=== PATIENT | male | born 1960 | race Two or more races ===

== ENCOUNTER 2018-03-10 21:18 | Emergency (ER) | payer MEDICAID ==
[~2018-03-10] VITALS: Ht 167.6 cm; Wt 72.6 kg
[2018-03-10 21:25] VITALS: BP 117/80
[2018-03-10] MEDS: Albuterol ud Inhalation HHN ONE ×2 (21:45→22:56)
[2018-03-10] MEDS ORDERED: Morphine Sulfate 2mg/ml Inj IVP ONE (22:45)
[2018-03-10 23:50] LABS: BASOPHILS % (AUTO) 1.4 % (0.0-2.0); EOSINOPHILS % (AUTO) 1.8 % (0.0-3.0); HEMATOCRIT 39.8 % (42.0-52.0); HEMOGLOBIN 13.5 G/DL (14.2-18.0); LYMPHOCYTES % (AUTO) 14.9 % (20.0-45.0); MEAN CORPUSCULAR VOLUME 93 FL (80-99); MONOCYTES % (AUTO) 10.6 % (1.0-10.0); NEUTROPHILS % (AUTO) 71.3 % (45.0-75.0); PLATELET COUNT 166 K/UL (150-450); RED BLOOD COUNT 4.27 M/UL (4.70-6.10); RED CELL DISTRIBUTION WIDTH 13.1 % (11.6-14.8); WHITE BLOOD COUNT 7.9 K/UL (4.8-10.8)
[2018-03-11] LABS: BLOOD UREA NITROGEN 43 mg/dL (7-18); CARBON DIOXIDE 26 MMOL/L (21-32); CHLORIDE 102 MMOL/L (98-107); CREATININE 1.3 MG/DL (0.55-1.30); POTASSIUM 3.8 MMOL/L (3.5-5.1); SODIUM 135 MMOL/L (136-145)
[2018-03-11 00:01] LABS: ALANINE AMINOTRANSFERASE 319 U/L (12-78); ALBUMIN 2.9 G/DL (3.4-5.0); ASPARTATE AMINO TRANSFERASE 288 U/L (15-37); BILIRUBIN,TOTAL 1.6 MG/DL (0.2-1.0); CALCIUM 8.4 MG/DL (8.5-10.1)
[2018-03-11 00:02] LABS: ALKALINE PHOSPHATASE 184 U/L (46-116); BILIRUBIN,DIRECT 0.8 MG/DL (0.0-0.3)
[2018-03-11] MEDS ORDERED: PEPCID AC20 M2 PO (00:06)
--- NOTE | 2018-03-11 04:52 | Emergency Room Report ---
History of Present Illness General Chief Complaint: Abdominal Pain Source: Patient Present Illness HPI Patient is she complained of shortness of breath to me however looking at the triage she had reported abdominal pain asking further patient reports that he does have diffuse abdominal pain increased nausea Denies any chest pain denies any back or flank pain Patient has increased nausea denies any vomiting denies any diarrhea however he does feel somewhat constipated Denies any rash patient had recent hospital stay at [facility] Allergies: Coded Allergies: No Known Allergies (Unverified , 03/10/18) Patient History Past Medical History: see triage record Pertinent Family History: none Reviewed Nursing Documentation: PMH: Agreed; PSxH: Agreed Nursing Documentation-PMH Past Medical History: No Stated History Review of Systems All Other Systems: negative except mentioned in HPI Physical Exam Vital Signs Date Time Temp Pulse Resp B/P (MAP) Pulse Ox O2 Delivery O2 Flow Rate FiO2 03/10/18 21:15 98.0 72 16 117/80 98 Room Air 98.1 03/10/18 22:54 21 Sp02 EP Interpretation: reviewed, normal General Appearance: no apparent distress - However mildly disheveled Head: normocephalic, atraumatic Eyes: bilateral eye PERRL, bilateral eye EOMI ENT: hearing grossly normal, normal pharynx, TMs + canals normal, uvula midline Neck: full range of motion, supple, no meningismus, no bony tend Respiratory: lungs clear, normal breath sounds, no rhonchi, no respiratory distress, no retraction, no accessory muscle use Cardiovascular #1: normal peripheral pulses, regular rate, rhythm, no edema, no gallop, no JVD, no murmur Gastrointestinal: normal bowel sounds, non tender, soft, no mass, no organomegaly, non-distended, no guarding, no hernia, no pulsatile mass, no rebound Genitourinary: no CVA tenderness Musculoskeletal: normal inspection Neurologic: oriented x3, responsive, 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, motor strength/ tone normal, sensory intact Psychiatric: mood/affect normal Skin: normal color, no rash, warm/dry, palpation normal Lymphatic: normal inspection, no adenopathy Medical Decision Making Diagnostic Impression: Primary Impression: abdominal pain ER Course With the history exam and presentation, multiple differentials considered, including but not limited to appendicitis, gastritis, cholecystitis, diverticulitis Patient did have CT imaging obtained along with blood work CT imaging does reveal signs of mild ascites Patient's liver function tests are also mildly elevated Patient was provided with pain medicine resting comfortably After prolonged observation and improved status patient is stable for close outpatient follow-up Labs Test 03/10/18 23:20 White Blood Count 7.9 K/UL (4.8-10.8) Red Blood Count 4.27 M/UL (4.70-6.10) Hemoglobin 13.5 G/DL (14.2-18.0) Hematocrit 39.8 % (42.0-52.0) Mean Corpuscular Volume 93 FL (80-99) Mean Corpuscular Hemoglobin 31.6 PG (27.0-31.0) Mean Corpuscular Hemoglobin Concent 33.9 G/DL (32.0-36.0) Red Cell Distribution Width 13.1 % (11.6-14.8) Platelet Count 166 K/UL (150-450) Mean Platelet Volume 9.4 FL (6.5-10.1) Neutrophils (%) (Auto) 71.3 % (45.0-75.0) Lymphocytes (%) (Auto) 14.9 % (20.0-45.0) Monocytes (%) (Auto) 10.6 % (1.0-10.0) Eosinophils (%) (Auto) 1.8 % (0.0-3.0) Basophils (%) (Auto) 1.4 % (0.0-2.0) Sodium Level 135 MMOL/L (136-145) Potassium Level 3.8 MMOL/L (3.5-5.1) Chloride Level 102 MMOL/L (98-107) Carbon Dioxide Level 26 MMOL/L (21-32) Blood Urea Nitrogen 43 mg/dL (7-18) Creatinine 1.3 MG/DL (0.55-1.30) Estimat Glomerular Filtration Rate 56.9 mL/min (>60) Glucose Level 107 MG/DL (74-106) Calcium Level 8.4 MG/DL (8.5-10.1) Total Bilirubin 1.6 MG/DL (0.2-1.0) Direct Bilirubin 0.8 MG/DL (0.0-0.3) Aspartate Amino Transf (AST/SGOT) 288 U/L (15-37) Alanine Aminotransferase (ALT/SGPT) 319 U/L (12-78) Alkaline Phosphatase 184 U/L (46-116) Total Protein 5.9 G/DL (6.4-8.2) Albumin 2.9 G/DL (3.4-5.0) Globulin 3.0 g/dL Albumin/Globulin Ratio 1.0 (1.0-2.7) Lipase 217 U/L (73-393) Serum Alcohol < 3 mg/dL CT/MRI/US Diagnostic Results CT/MRI/US Diagnostic Results : Impression CT abdomen pelvis: Ascites, otherwise appendix is normal no signs of diverticulitis Last Vital Signs Date Time Temp Pulse Resp B/P (MAP) Pulse Ox O2 Delivery O2 Flow Rate FiO2 03/10/18 23:50 98.0 03/10/18 23:05 58 18 97 Room Air 21 03/10/18 21:25 117/80 Status: improved Disposition: HOME, SELF-CARE Condition: Improved Scripts Famotidine (PEPCID AC) 20 Mg Tablet 20 MG PO DAILY for 7 Days, TAB Prov: Pedro Varela DO 03/11/18 Referrals: NOT CHOSEN [facility]/MD,REFERRING (PCP) Patient Instructions: Ascites, Abdominal Pain, Adult Additional Instructions: Patient is provided with the discharge instructions notified to follow up with primary doctor in the next 2-3 days otherwise return to the er with any worsening symptoms. Please note that this report is being documented using [employer] technology. This can lead to erroneous entry secondary to incorrect interpretation by the dictating instrument. Pedro Varela DO Mar 11, 2018 04:52
[2018-03-11 06:00] VITALS: BP 117/80
--- NOTE | 2018-03-11 09:25 | Diagnostic Imaging Report ---
Indication: Abdominal pain Technique: Continuous helical transaxial imaging of the abdomen and pelvis was obtained from the lung bases to the pubic symphysis. No intravenous contrast was administered. Coronal 2-D reformats were also obtained. Automatic Exposure Control was utilized. Total Dose length Product (DLP): 808.[address] Dose Index Volume (CTDIvol): 15.91 mGy Comparison: none Findings: Lung bases are essentially clear. Cardiomegaly, small pericardial effusion demonstrated. Trace right pleural effusion demonstrated. Mild ascites noted. Gallbladder is contracted. No hydronephrosis seen. Aortoiliac calcifications are present. There is thickening of the wall the urinary bladder. There is moderate stool retention with distention of the rectum due to feces. There is a right inguinal hernia containing a mild amount of ascites. There is narrowing of intervertebral discs and accompanying endplate osteophyte formation. Hypertrophied facet joints also demonstrated.. IMPRESSION: Moderate fecal impaction as described above. Mild ascites Small right inguinal hernia containing ascites Other incidental findings as above The CT scanner at [facility] is accredited by the [employer] and the scans are performed using dose optimization techniques as appropriate to a performed exam including Automatic Exposure control.
--- NOTE | 2018-03-11 10:32 | Diagnostic Imaging Report ---
Indication: Dyspnea Comparison: None A single view chest radiograph was obtained. Findings: Borderline cardiomegaly noted. The lungs are clear. Pulmonary vascularity is appropriate. The diaphragmatic contour is smooth and costophrenic angles are sharp. No pleural effusions are identified. The bones are unremarkable. There is an old left clavicle fracture. Impression: No acute findings. Borderline cardiomegaly
== END 2018-03-11 06:00 | disposition home or self-care (01) ==
LOC: EDBD 21:18 → EMR 21:54
DX: R10.9 Unspecified abdominal pain (principal)
CPT/HCPCS: 36415; 71045; 74176; 80053; 80329; 82248; 83690; 85025; 94640; 94664; 96374; 99284; J2270